=== PATIENT | male | born 1950 | race Caucasian/White ===

== ENCOUNTER 2016-08-16 10:07 | Emergency (ER) | payer BC ==
[2016-08-16] MEDS ORDERED: Ketorolac INJ* 30 MG/ML 1 ML VIAL IV ONE (11:01)
[2016-08-16] MEDS ORDERED: NS 0.9% 1000 ML* 1,000 ML IV ONE (11:01)
[2016-08-16 11:32] LABS: Hematocrit 43 % (42-52); Mean Corpuscular HGB Conc 35 g/dl (31-36); Mean Corpuscular Hemoglobin 32 pg (27-31); Mean Corpuscular Volume 91 fL (80-94); Mean Platelet Volume 9 um3 (7.4-10.4); Red Blood Count 4.72 10^6/ul (4.0-5.4); Red Cell Distribution Width 14 % (10.5-15); White Blood Count 9.2 10^3/ul (3.5-10.8)
[2016-08-16 11:34] LABS: Comments Flag Yes
[2016-08-16 11:55] LABS: ALT 21 U/L (7-52); AST 23 U/L (13-39); Alkaline Phosphatase 67 U/L (34-104); Amylase 39 U/L (29-103); Anion Gap 6 mmol/L (2-11); Blood Urea Nitrogen 16 mg/dL (6-24); C Reactive Protein < 1.00 mg/L (< 5.00); CO2 Carbon Dioxide 25 mmol/L (22-32); Calcium 9.4 mg/dL (8.6-10.3); Chloride 105 mmol/L (101-111); Creatine Kinase 70 U/L (10-223); EGFR African American 110.7 (>60); EGFR Non-African American 86.1 (>60); Globulin 2.8 g/dL (2-4); Glucose 99 mg/dL (70-100); Lipase < 10 U/L (11.0-82.0); Potassium 3.8 mmol/L (3.5-5.0); Sodium 136 mmol/L (133-145); Total Protein 6.8 g/dL (6.4-8.9)
[2016-08-16 11:57] LABS: Urine Bilirubin Negative (Negative); Urine Glucose Negative (Negative); Urine Nitrite Negative (Negative)
[2016-08-16] MEDS ORDERED: Iohexol 300* (CONTRAST) 10 ML SDV IV ONE (12:23)
--- NOTE | 2016-08-16 13:19 | RAD ---
INDICATION: Lower abdominal pain COMPARISON: CT September 28, 2010 TECHNIQUE: Axial source images were obtained from the hemidiaphragms to the symphysis pubis following administration of oral and intravenous contrast. 115 mL Omnipaque 300 was utilized. Coronal and sagittal reconstructed images were acquired. Lung bases: There is mild linear change right lung base most consistent with atelectasis. Liver: The liver is normal in size. There are no masses. There is no ductal dilatation. Gallbladder: There are no calcified gallstones. There is no evidence of wall thickening or pericholecystic fluid. Spleen: The spleen is normal in size. There are no masses. Pancreas: There is no focal pancreatic mass or ductal dilatation. Adrenal glands: There is no evidence of adrenal mass. Kidneys: The kidneys are normal in size and position. There are prompt nephrograms and there is prompt excretion bilaterally. There are no renal parenchymal masses. There is no evidence of nephrolithiasis. Adenopathy: There is no evidence of adenopathy by size criteria. Fluid collections: There are no free or localized fluid collections. Vessels:There are no significant atherosclerotic changes involving the aorta. There is no focal aneurysm. The iliac vessels are normal in caliber. The IVC appears normal. GI tract: There are no acute CT bowel findings. There is no obstruction. The stomach and small bowel appear normal. The lower GI tract is normal. The cecum, ileocecal valve, and terminal ileum appear normal. The appendix is visualized and appear normal. Pelvic organs: The prostate and seminal vesicles appear normal Bladder: There are no bladder masses. Abdominal and pelvic soft tissues: The extraperitoneal abdominal and pelvic soft tissues appear normal.. Osseous structures: There are no acute osseous findings. There is left hip pinning. There is advanced degenerative disc disease at L2-L3. Other: None IMPRESSION: NO ACUTE CT FINDINGS. NO MASS OR INFLAMMATORY CHANGE.
--- NOTE | 2016-08-16 13:42 | ED ---
Octavio Arriaga Alok, scribed for Estevan Vasquez MD on 08/16/16 at 1113 . Abdominal Pain/Male - HPI Summary HPI Summary: 66 y/o male presents to the ED for pain in his lower back, buttocks, umbilical, and near rectum. Pt states that he has been sitting at a conference for the last three days and what began as pain in only in his buttocks spread to other regions along with accompanying nausea as of last night at 1900 after a regular meal. His last BM was last night voided a small amount with no straining or blood but felt uncomfortable before. His BM previous to that was normal. Pt denies vomiting. Pt has hx of arthritis, kidney stones, and hemorrhoids. Pt takes medications for arthritis but stopped recently in preparation for dental surgery. PSHx includes a pin in his left knee and left side hip. Pt drinks EtOH occasionally but denies tobacco use. - History of Current Complaint Chief Complaint: EDAbdPain Stated Complaint: ABDOMINAL PAIN Time Seen by Provider: 08/16/16 10:39 Hx Obtained From: Patient Onset/Duration: Gradual Onset, Lasting Hours, Still Present Timing: Constant Severity Initially: Moderate Severity Currently: Moderate Pain Intensity: 3 Pain Scale Used: 0-10 Numeric Location: Umbilical, Other - Buttocks, rectum Radiates: Yes Radiates to: Back Character: Sharp Aggravating Factor(s): Nothing Alleviating Factor(s): Nothing Associated Signs And Symptoms: Positive: Back Pain, Nausea. Negative: Blood in Stool, Vomiting - Allergies/Home Medications Allergies/Adverse Reactions: Allergies Allergy/AdvReac Type Severity Reaction Status Date / Time No Known Allergies Allergy Verified 02/15/12 13:26 PMH/Surg Hx/FS Hx/Imm Hx Endocrine/Hematology History: Denies: Hx Diabetes, Hx Thyroid Disease Cardiovascular History: Denies: Hx Hypertension Respiratory History: Denies: Hx Asthma, Hx Chronic Obstructive Pulmonary Disease (COPD) GI History: Denies: Hx Ulcer - Surgical History Surgery Procedure, Year, and Place: L hip fracture; L knee x 2; Infectious Disease History: Denies: Hx Hepatitis, Hx Human Immunodeficiency Virus (HIV), Traveled Outside the [place] in Last 30 Days - Family History Known Family History: Positive: Diabetes - Mother, Other - Yes - Prostate CA ( Father) - Social History Alcohol Use: Occasionally Substance Use Type: Reports: None Smoking Status (MU): Never Smoked Tobacco Review of Systems Negative: Fever Positive: Abdominal Pain, Nausea. Negative: Vomiting Musculoskeletal: Other - Back Pain Positive: Rash All Other Systems Reviewed And Are Negative: Yes Physical Exam - Summary Physical Exam Summary: VITAL SIGNS: Reviewed. GENERAL: ~Patient is a well developed and nourished male who is lying comfortable in the stretcher. ~Patient is not in any acute respiratory distress. HEAD AND FACE: Normocephalic EYES: PERRLA, EOMI x 2. EARS: Hearing grossly intact. MOUTH: Oropharynx within normal limits. NECK: Supple, trachea is midline, no adenopathy, no JVD, no carotid bruit. CHEST: Symmetric, no tenderness at palpation LUNGS: Clear to auscultation bilaterally. No wheezing or crackles. CVS: Regular rate and rhythm, S1 and S2 present, no murmurs or gallops appreciated. ABDOMEN: Soft, non-tender. Bowel sounds are normal. No abdominal abnormal pulsations. EXTREMITIES: Full ROM in all major joints, no edema, no cyanosis or clubbing. NEURO: Alert and oriented x 3. No acute neurological deficits. Speech is normal and follows commands. SKIN: Dry and warm RECTAL: Mild gluteal tenderness and rash secondary to osteoarthritis. No ventricular lesions so no risk for shingles. Triage Information Reviewed: Yes Vital Signs On Initial Exam: Initial Vitals Temp Pulse Resp BP Pulse Ox 97.4 F 57 20 153/91 100 08/16/16 10:12 08/16/16 10:12 08/16/16 10:12 08/16/16 10:12 08/16/16 10:12 Vital Signs Reviewed: Yes - [place] Coma Scale Coma Scale Total: 15 Diagnostics - Vital Signs Vital Signs Temp Pulse Resp BP Pulse Ox 08/16/16 11:00 53 126/88 97 08/16/16 10:26 54 97 08/16/16 10:24 139/95 08/16/16 10:12 97.4 F 57 20 153/91 100 - Laboratory Lab Results: Lab Results 08/16/16 08/16/16 08/16/16 Range/Units 11:10 11:10 11:10 WBC 9.2 (3.5-10.8) 10^3/ul RBC 4.72 (4.0-5.4) 10^6/ul Hgb 15.0 (14.0-18.0) g/dl Hct 43 (42-52) % MCV 91 (80-94) fL MCH 32 H (27-31) pg MCHC 35 (31-36) g/dl RDW 14 (10.5-15) % Plt Count 164 (150-450) 10^3/ul MPV 9 (7.4-10.4) um3 Neut % (Auto) 80.2 (38-83) % Lymph % (Auto) 14.0 L (25-47) % [place] % (Auto) 5.2 (1-9) % Eos % (Auto) 0.2 (0-6) % Baso % (Auto) 0.4 (0-2) % Absolute Neuts (auto) 7.4 (1.5-7.7) 10^3/ul Absolute Lymphs (auto) 1.3 (1.0-4.8) 10^3/ul Absolute Monos (auto) 0.5 (0-0.8) 10^3/ul Absolute Eos (auto) 0 (0-0.6) 10^3/ul Absolute Basos (auto) 0 (0-0.2) 10^3/ul Absolute Nucleated RBC 0.06 10^3/ul Nucleated RBC % 0.7 Sodium 136 (133-145) mmol/L Potassium 3.8 (3.5-5.0) mmol/L Chloride 105 (101-111) mmol/L Carbon Dioxide 25 (22-32) mmol/L Anion Gap 6 (2-11) mmol/L BUN 16 (6-24) mg/dL Creatinine 0.89 (0.67-1.17) mg/dL Est GFR ( Amer) 110.7 (>60) Est GFR (Non-Af Amer) 86.1 (>60) BUN/Creatinine Ratio 18.0 (8-20) Glucose 99 (70-100) mg/dL Lactic Acid 1.1 (0.5-2.0) mmol/L Calcium 9.4 (8.6-10.3) mg/dL Total Bilirubin 0.90 (0.2-1.0) mg/dL AST 23 (13-39) U/L ALT 21 (7-52) U/L Alkaline Phosphatase 67 (34-104) U/L Total Creatine Kinase 70 (10-223) U/L C-Reactive Protein < 1.00 (< 5.00) mg/L Total Protein 6.8 (6.4-8.9) g/dL Albumin 4.0 (3.2-5.2) g/dL Globulin 2.8 (2-4) g/dL Albumin/Globulin Ratio 1.4 (1-3) Amylase 39 (29-103) U/L Lipase < 10 L (11.0-82.0) U/L Urine Color Urine Appearance Urine pH (5-9) Ur Specific [place] (1.010-1.030) Urine Protein (Negative) Urine Ketones (Negative) Urine Blood (Negative) Urine Nitrate (Negative) Urine Bilirubin (Negative) Urine Urobilinogen (Negative) Ur Leukocyte Esterase (Negative) Urine Glucose (Negative) 08/16/16 Range/Units 11:26 WBC (3.5-10.8) 10^3/ul RBC (4.0-5.4) 10^6/ul Hgb (14.0-18.0) g/dl Hct (42-52) % MCV (80-94) fL MCH (27-31) pg MCHC (31-36) g/dl RDW (10.5-15) % Plt Count (150-450) 10^3/ul MPV (7.4-10.4) um3 Neut % (Auto) (38-83) % Lymph % (Auto) (25-47) % [place] % (Auto) (1-9) % Eos % (Auto) (0-6) % Baso % (Auto) (0-2) % Absolute Neuts (auto) (1.5-7.7) 10^3/ul Absolute Lymphs (auto) (1.0-4.8) 10^3/ul Absolute Monos (auto) (0-0.8) 10^3/ul Absolute Eos (auto) (0-0.6) 10^3/ul Absolute Basos (auto) (0-0.2) 10^3/ul Absolute Nucleated RBC 10^3/ul Nucleated RBC % Sodium (133-145) mmol/L Potassium (3.5-5.0) mmol/L Chloride (101-111) mmol/L Carbon Dioxide (22-32) mmol/L Anion Gap (2-11) mmol/L BUN (6-24) mg/dL Creatinine (0.67-1.17) mg/dL Est GFR ( Amer) (>60) Est GFR (Non-Af Amer) (>60) BUN/Creatinine Ratio (8-20) Glucose (70-100) mg/dL Lactic Acid (0.5-2.0) mmol/L Calcium (8.6-10.3) mg/dL Total Bilirubin (0.2-1.0) mg/dL AST (13-39) U/L ALT (7-52) U/L Alkaline Phosphatase (34-104) U/L Total Creatine Kinase (10-223) U/L C-Reactive Protein (< 5.00) mg/L Total Protein (6.4-8.9) g/dL Albumin (3.2-5.2) g/dL Globulin (2-4) g/dL Albumin/Globulin Ratio (1-3) Amylase (29-103) U/L Lipase (11.0-82.0) U/L Urine Color Yellow Urine Appearance Clear Urine pH 7.0 (5-9) Ur Specific [place] 1.018 (1.010-1.030) Urine Protein Negative (Negative) Urine Ketones Trace H (Negative) Urine Blood Negative (Negative) Urine Nitrate Negative (Negative) Urine Bilirubin Negative (Negative) Urine Urobilinogen Negative (Negative) Ur Leukocyte Esterase Negative (Negative) Urine Glucose Negative (Negative) Result Diagrams: 08/16/16 11:10 08/16/16 11:10 Lab Statement: Any lab studies that have been ordered have been reviewed, and results considered in the medical decision making process. - CT Abd/Pel CT CT Interpretation: Positive (See Comments) - IMPRESSION: NO ACUTE CT FINDINGS. NO MASS OR INFLAMMATORY CHANGE. CT Interpretation Completed By: Radiologist - EKG 1122 Cardiac Rate: NL EKG Rhythm: Sinus Rhythm - 43 bpm EKG Interpretation: No ST elevations Re-Evaluation - Re-Evaluation First Eval Re-Evaluation Time: 13:33 Abdominal Pain Fem Course/Dx - Course Course Of Treatment: 66 y/o male presents to the ED for pain in his lower back, buttocks, umbilical, and near rectum. Pt states that he has been sitting at a conference for the last three days and what began as pain in only in his buttocks spread to other regions along with accompanying nausea as of last night at 1900 after a regular meal. His last BM was last night voided a small amount with no straining or blood but felt uncomfortable before. His BM previous to that was normal. Pt denies vomiting. Pt has hx of arthritis, kidney stones, and hemorrhoids. Pt takes medications for arthritis but stopped recently in preparation for dental surgery. PSHx includes a pin in his left knee and left side hip. Pt drinks EtOH occasionally but denies tobacco use. Assessment/Plan: Blood work found to be wnl. In physical exam he has no abnormal findings except for mild left gluteal tenderness at palpitations. Rectal exam shows no external hemorrhoids. Normal sphincter tone. Back exam shows no ecchymosis, no deformity or signs of trauma. No paraspinal muscle tenderness and no vertebral tenderness. He was given toradol in the ED and his symptoms improved. Abdominal and pelvic CT was done since patient also c / c lower abdominal pain. IMPRESSION: NO ACUTE CT FINDINGS. NO MASS OR INFLAMMATORY CHANGE. Therefore at this time patient will be given a Robaxin and Ibuprofen. I discussed all the findings and test results with the patient. Patient was instructed to return to the emergency room immediately if any of the symptoms return or worsens. Plan of care was discussed with the patient and understands and agrees. All questions were answered at patient satisfaction. There were no further complaints or concerns. Lung exam before discharge: CTA B/L. Good air exchange. No wheezing or crackles heard. CVS: S1 and S2 present. No murmurs appreciated. Patient is alert and oriented x 3. Patient is hemodynamically stable. 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 - Diagnoses Differential Diagnosis/HQI/PQRI: Bowel Obstruction, Constipation, Diverticulitis , Other - Abscess, cellulitis, back pain, Provider Diagnoses: Musculoskeletal pain Discharge - Discharge Plan Condition: Stable Disposition: HOME Prescriptions: Ibuprofen TAB* [Motrin TAB* 800 MG] 800 mg PO Q6H PRN #20 tab PRN Reason: Pain Methocarbamol TAB* [Robaxin TAB*] 750 mg PO TID PRN #12 tab PRN Reason: Pain Patient Education Materials: Musculoskeletal Pain (ED) Referrals: Carmen Estrada MD [Primary Care Provider] - The documentation as recorded by the Chriss neelye,Regino accurately reflects the service I personally performed and the decisions made by me, Estevan Vasquez MD.
[2016-08-16 13:52] VITALS: BP 128/74
== END 2016-08-16 13:51 | disposition home or self-care (01) ==
LOC: ED 10:07
DX: M79.1 Myalgia (principal); M54.5 Low back pain; R11.0 Nausea; R21 Rash and other nonspecific skin eruption
CPT/HCPCS: 36415; 74177; 80053; 81003; 82150; 82550; 83605; 83690; 85025; 86140; 93005; 96361; 96374; 99283; J1885; Q9967

== ENCOUNTER 2017-10-03 05:28 | Emergency (ER) | payer MEDICARE ==
--- OUTSIDE RECORDS SUMMARY | 2017-10-03 05:35 | XMS REPORT ---
:1950 External Reference #:[id number] Author Organization [facility] Address [address] [place] [address] Phone [phone] Care Team Providers Name Role Phone Carmen Estrada M.D. 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 Primary Care Physician Unavailable Payers Type Date Identification Numbers Payment Provider Subscriber Medicare Primary Policy Number: [id number] Medicare [place] PayID: [id number] [address] [facility] [place] [facility] Commercial Policy Number: [id number] [facility] Willis Matt Group Number: [id number] [address] PayID: [id number] [place] [address] Problems Date Description Provider Status Onset: 09/05/2015 Rheumatoid arthritis Carmen Estrada M.D. 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 available and repeat in 2-6 months Humira 00/00/ Active PSKT 20mg/0.4M 1 dose Unknown 0000 L every other week Methotrexate / Active Tablets 2.5mg 6 tab by Unknown 0000 mouth every week Multivitamin / Active Tablets 1 by mouth Unknown Adult 0000 every day Fluticasone 02/11/ Hx Suspension 50mcg/Act 48gm 2 sprays H69.93 Carmen Propionate 2017 - each [place], 08/04/ nostril M.D. 2018 twice a day Claritin 02/11/ Hx Tablets 10mg 90tab take one H69.93 Carmen 2017 - s tablet by [place], 07/07/ mouth one M.D. 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 1998 prn Immunizations CPT Code Status Date Vaccine Lot # [id number] Given 09/04/2017 Pneumococcal Immunization [id number] Given 01/02/2016 Pneumococcal Conjugate Vacc-13 [id number] Given 09/05/2015 Tdap Tetanus, W Pertussis [id number] Vital Signs Date Vital Result Comment 09/04/2017 BP Systolic 100 mmHg BP Diastolic 60 mmHg Heart Rate 68 /min Body Temperature 97.9 F Respiratory Rate 16 /min Height 73 inches 6'1" Weight 183.00 lb BMI (Body Mass Index) 24.1 kg/m2 02/11/2017 BP Systolic 110 mmHg BP Diastolic 80 mmHg Heart Rate 68 /min Body Temperature 98.1 F Respiratory Rate 18 /min Weight 181.00 lb 09/05/2015 BP Systolic 124 mmHg BP Diastolic 80 mmHg Heart Rate 64 /min Body Temperature 97.5 F Respiratory Rate 12 /min Height 73 inches 6'1" Weight 192.00 lb BMI (Body Mass Index) 25.3 kg/m2 07/26/2015 BP Systolic 110 mmHg BP Diastolic 78 mmHg Heart Rate 68 /min Body Temperature 97.7 F Respiratory Rate 16 /min Height 73 inches 6'1" Weight 192.00 lb BMI (Body Mass Index) 25.3 kg/m2 08/10/1998 BP Systolic 130 mmHg BP Diastolic 80 mmHg Body Temperature 99.0 F Weight 191.00 lb Results Test Date Test Result H/L Range Note CBC Auto Diff 08/16/2016 White Blood Count 9.2 10^3/uL 3.5-10.8 Red Blood Count 4.72 10^6/uL 4.0-5.4 Hemoglobin 15.0 g/dL 14.0-18.0 Hematocrit 43 % 42-52 Mean Corpuscular Volume 91 fL 80-94 Mean Corpuscular Hemoglobin 32 pg High 27-31 Mean Corpuscular HGB Conc 35 g/dL 31-36 Red Cell Distribution Width 14 % 10.5-15 Platelet Count 164 10^3/uL 150-450 Mean Platelet Volume 9 um3 7.4-10.4 Abs Neutrophils 7.4 10^3/uL 1.5-7.7 Abs Lymphocytes 1.3 10^3/uL 1.0-4.8 Abs Monocytes 0.5 10^3/uL 0-0.8 Abs Eosinophils 0 10^3/uL 0-0.6 Abs Basophils 0 10^3/uL 0-0.2 Abs Nucleated RBC 0.06 10^3/uL Granulocyte % 80.2 % 38-83 1 Lymphocyte % 14.0 % Low 25-47 Monocyte % 5.2 % 1-9 Eosinophil % 0.2 % 0-6 Basophil % 0.4 % 0-2 Nucleated Red Blood Cells % 0.7 Comp Metabolic Panel 08/16/2016 Sodium 136 mmol/L 133-145 Potassium 3.8 mmol/L 3.5-5.0 Chloride 105 mmol/L 101-111 Co2 Carbon Dioxide 25 mmol/L 22-32 Anion Gap 6 mmol/L 2-11 Glucose 99 mg/dL 70-100 Blood Urea Nitrogen 16 mg/dL 6-24 Creatinine 0.89 mg/dL 0.67-1.17 BUN/Creatinine Ratio 18.0 8-20 Calcium 9.4 mg/dL 8.6-10.3 Total Protein 6.8 g/dL 6.4-8.9 Albumin 4.0 g/dL 3.2-5.2 Globulin 2.8 g/dL 2-4 Albumin/Globulin Ratio 1.4 1-3 Total Bilirubin 0.90 mg/dL 0.2-1.0 Alkaline Phosphatase 67 U/L 34-104 Alt 21 U/L 7-52 Ast 23 U/L 13-39 Egfr Non- 86.1 >60 Egfr 110.7 >60 2 Laboratory test finding 08/16/2016 Amylase 39 U/L 29-103 Lipase < 10 U/L Low 11.0-82.0 Creatine Kinase(CK) 70 U/L 10-223 C Reactive Protein < 1.00 mg/L < 5.00 3 Lactic Acid 1.1 mmol/L 0.5-2.0 4 Urinalysis Profile 08/16/2016 Urine Color Yellow Urine Appearance Clear Urine Specific [place] 1.018 1.010-1.030 Urine pH 7.0 5-9 Urine Urobilinogen Negative Negative Urine Ketones Trace Negative Urine Protein Negative Negative Urine Leukocytes Negative Negative Urine Blood Negative Negative Urine Nitrite Negative Negative Urine Bilirubin Negative Negative Urine Glucose Negative Negative Comp Metabolic Panel 04/24/2016 Sodium 138 mmol/L 133-145 Potassium 4.0 mmol/L 3.5-5.0 Chloride 106 mmol/L 101-111 Co2 Carbon Dioxide 24 mmol/L 22-32 Anion Gap 8 mmol/L 2-11 Glucose 91 mg/dL 70-100 Blood Urea Nitrogen 15 mg/dL 6-24 Creatinine 0.91 mg/dL 0.67-1.17 BUN/Creatinine Ratio 16.5 8-20 Calcium 9.6 mg/dL 8.6-10.3 Total Protein 7.0 g/dL 6.4-8.9 Albumin 4.2 g/dL 3.2-5.2 Globulin 2.8 g/dL 2-4 Albumin/Globulin Ratio 1.5 1-3 Total Bilirubin 0.90 mg/dL 0.2-1.0 Alkaline Phosphatase 65 U/L 34-104 Alt 22 U/L 7-52 Ast 27 U/L 13-39 Egfr Non- 84.1 >60 Egfr 108.2 >60 5 Laboratory test finding 04/24/2016 C Reactive Protein 1.08 mg/L < 5.00 6 CBC Auto Diff 04/24/2016 White Blood Count 6.6 10^3/uL 3.5-10.8 Red Blood Count 4.66 10^6/uL 4.0-5.4 Hemoglobin 14.8 g/dL 14.0-18.0 Hematocrit 42 % 42-52 Mean Corpuscular Volume 91 fL 80-94 Mean Corpuscular Hemoglobin 32 pg High 27-31 Mean Corpuscular HGB Conc 35 g/dL 31-36 Red Cell Distribution Width 14 % 10.5-15 Platelet Count 186 10^3/uL 150-450 Mean Platelet Volume 10 um3 7.4-10.4 Abs Neutrophils 4.2 10^3/uL 1.5-7.7 Abs Lymphocytes 1.8 10^3/uL 1.0-4.8 Abs Monocytes 0.5 10^3/uL 0-0.8 Abs Eosinophils 0 10^3/uL 0-0.6 Abs Basophils 0 10^3/uL 0-0.2 Abs Nucleated RBC 0.01 10^3/uL Granulocyte % 64.4 % 38-83 Lymphocyte % 27.8 % 25-47 Monocyte % 6.8 % 1-9 Eosinophil % 0.4 % 0-6 Basophil % 0.6 % 0-2 Nucleated Red Blood Cells % 0.1 Laboratory test finding 04/24/2016 Erythrocyte Sed Rate 8 mm/Hr 0-20 7 CBC Electronic-[facility] 09/22/2015 White Blood Count 5.5 10^3/uL 3.5-10.8 [facility] Red Blood Count 4.67 10^6/uL 4.0-5.4 Hemoglobin 14.7 g/dL 14.0-18.0 Hematocrit 43 % 42-52 Mean Corpuscular Volume 92 fL 80-94 Mean Corpuscular Hemoglobin 32 pg High 27-31 Mean Corpuscular HGB Conc 34 g/dL 31-36 Red Cell Distribution Width 13 % 10.5-15 Platelet Count 176 10^3/uL 150-450 Mean Platelet Volume 9 um3 7.4-10.4 Abs Neutrophils 3.1 10^3/uL 1.5-7.7 Abs Lymphocytes 1.8 10^3/uL 1.0-4.8 Abs Monocytes 0.5 10^3/uL 0-0.8 Abs Eosinophils 0.1 10^3/uL 0-0.6 Abs Basophils 0 10^3/uL 0-0.2 Abs Nucleated RBC 0 10^3/uL Granulocyte % 56.5 % 38-83 Lymphocyte % 32.4 % 25-47 Monocyte % 8.3 % 1-9 Eosinophil % 2.1 % 0-6 Basophil % 0.7 % 0-2 Nucleated Red Blood Cells % 0 Comp Metabolic-ALL Lab [facility] 09/22/2015 Sodium 137 mmol/L 133-145 Potassium 4.3 mmol/L 3.5-5.0 Chloride 104 mmol/L 101-111 Co2 Carbon Dioxide 29 mmol/L 22-32 Anion Gap 4 mmol/L 2-11 Glucose 94 mg/dL 70-100 Blood Urea Nitrogen 15 mg/dL 6-24 Creatinine 0.91 mg/dL 0.67-1.17 BUN/Creatinine Ratio 16.5 8-20 Calcium 9.2 mg/dL 8.6-10.3 Total Protein 6.7 g/dL 6.4-8.9 Albumin 4.2 g/dL 3.2-5.2 Globulin 2.5 g/dL 2-4 Albumin/Globulin Ratio 1.7 1-3 Total Bilirubin 0.90 mg/dL 0.2-1.0 Alkaline Phosphatase 76 U/L 34-104 Alt 24 U/L 7-52 Ast 28 U/L 13-39 Egfr Non- 84.1 >60 Egfr 108.2 >60 8 Lipid Panel-[facility] 09/22/2015 Triglycerides 74 mg/dL 9 Cholesterol 179 mg/dL 10 HDL Cholesterol 42.2 mg/dL 11 LDL Cholesterol 122 mg/dL 12 Urinalysis Profile 09/22/2015 Urine Color Yellow Urine Appearance Clear Urine Specific [place] 1.017 1.010-1.030 Urine pH 5.0 5-9 Urine Urobilinogen Negative Negative Urine Ketones Negative Negative Urine Protein Negative Negative Urine Leukocytes Negative Negative Urine Blood Negative Negative Urine Nitrite Negative Negative Urine Bilirubin Negative Negative Urine Glucose Negative Negative 1 Consistent with previous results on 07/31/16. 2 Because ethnic data is not always readily available, this report includes an eGFR for both -Americans and non- Americans. The National Kidney Disease Education Program (NKDEP) does not endorse the use of the MDRD equation for patients that are not between the ages of 18 and 70, are , have extremes of body size, muscle mass, or nutritional status, or are non- or non-. According to the National Kidney Foundation, irrespective of diagnosis, the stage of the disease is based on the level of kidney function: Stage Description GFR(mL/min/1.73 m(2)) 1 Kidney damage with normal or decreased GFR 90 2 Kidney damage with mild decrease in GFR 60-89 3 Moderate decrease in GFR 30-59 4 Severe decrease in GFR 15-29 5 Kidney failure <15 (or dialysis) 3 Acute inflammation: >10.[address] [facility] Severe Sepsis and Septic Shock Management Bundle Measure requires all lactic acids initially measuring >2.0 mmol/L be repeated. 5 Because ethnic data is not always readily available, this report includes an eGFR for both -Americans and non- Americans. The National Kidney Disease Education Program (NKDEP) does not endorse the use of the MDRD equation for patients that are not between the ages of 18 and 70, are , have extremes of body size, muscle mass, or nutritional status, or are non- or non-. According to the National Kidney Foundation, irrespective of diagnosis, the stage of the disease is based on the level of kidney function: Stage Description GFR(mL/min/1.73 m(2)) 1 Kidney damage with normal or decreased GFR 90 2 Kidney damage with mild decrease in GFR 60-89 3 Moderate decrease in GFR 30-59 4 Severe decrease in GFR 15-29 5 Kidney failure <15 (or dialysis) 6 Acute inflammation: >10.00 7 STANDING ORDER VALID 02/20/16-08/20/16 DIRECTED 8 Because ethnic data is not always readily available, this report includes an eGFR for both -Americans and non- Americans. The National Kidney Disease Education Program (NKDEP) does not endorse the use of the MDRD equation for patients that are not between the ages of 18 and 70, are , have extremes of body size, muscle mass, or nutritional status, or are non- or non-. According to the National Kidney Foundation, irrespective of diagnosis, the stage of the disease is based on the level of kidney function: Stage Description GFR(mL/min/1.73 m(2)) 1 Kidney damage with normal or decreased GFR 90 2 Kidney damage with mild decrease in GFR 60-89 3 Moderate decrease in GFR 30-59 4 Severe decrease in GFR 15-29 5 Kidney failure <15 (or dialysis) 9 Desirable <150 Borderline high 150-199 High 200-499 Very High >500 10 Desirable <200 Borderline high 200-239 High >239 11 Low <40 Desirable: 40-60 High: >60 12 Desirable: <100 mg/dL Near Optimal: 100-129 mg/dL Borderline High: 130-159 mg/dL High: 160-189 mg/dL Very High: >189 mg/dL Procedures Date CPT Code Description Status 04/22/2016 Colonoscopy Completed Encounters Type Date Location Provider CPT E/M Dx Office Visit 02/11/2017 9:00a [facility] Carmen Estrada M.D. 77580 H69.93 Office Visit 09/05/2015 9:00a Main Office Carmen Estrada M.D. 37910 Z00.00 M05.79 Z12.11 Z23 Office Visit 07/26/2015 2:00p Main Office Nataly DIRK [place] 98274 J01.90 M25.562 Plan of Care 09/04/2017 - Carmen Estrada M.D.Z00.00 Encntr for general adult medical exam w/o abnormal findingsComments:Encourage an active and healthy lifestyle with proper eating habits including fruits, vegetables, 6-8 glasses of water a day and monitoring portion size. Recommend 30 minutes of daily physical activityincluding walking, aerobic exercise, sports, yoga or dance. Any activity is better than no activity.Recommend routine eye and dental exams. Next physical is due in 1-2 years. Recommend annual influenza [id number] Rheu arthritis w rheu factor mult site w/o org/sys involvNew Labs:CBC Electronic (Fma)CCS-Comp And Lipid (Fma)Comments:follows Dr Reyes/ [place], fasting labs with next blood drawN40.0 Benign prostatic hyperplasia without lower urinry tract sympNew Labs:PSA (ALL Lab Comp)Ua - Non Micro (Fma) Comments:call if symptoms worsen for medical [id number] Encounter for immunizationAllNew Medication:Shingrix 50 mcgComments:~B_~U_Medication Management~b_~u_ Patient Understands medications he's taking? Yes No Are there Barriers to Adherence? Yes No Has the patient been asked about herbal supplements and therapies, and OTC meds? Yes No
[2017-10-03] MEDS ORDERED: Methocarbamol* 100 MG/ML 10 ML VIAL IV ONE ×2 (05:45→05:56)
[2017-10-03] MEDS ORDERED: methylPREDNISolone SOD 40 MG* 1 ML VIAL IV ONE (05:55)
[2017-10-03] MEDS ORDERED: Ketorolac INJ* 30 MG/ML 1 ML VIAL IV PUSH ONE (05:55)
[2017-10-03] MEDS ORDERED: Ondansetron ODT TAB* 4 MG PO ONE (06:00)
--- NOTE | 2017-10-03 06:00 | ED ---
Back Pain - HPI Summary HPI Summary: 67M presents with lower back pain since yesterday. He denies any injury. He has a history of sciatica and states these feels the same the pain is just more intense. He state pain radiates into left buttock and down left leg occasionally to the knee. He denies any saddle anasethesia or loss of bowel or bladder. He denies any fever. He admits to nausea but denies any vomiting. He took tyenlol and advil last night without relief. He denies any dysuria or hematuria. He has PMH of kidney stones. He states pain wraps around to lower abdomen. He admits to constipation. He had normal BM yesterday. no blood in stool. no previous belly surgeries. is able to ambulate. no weakness. no chest pain or SOB. PMH of arthritis. - History of Current Complaint Chief Complaint: EDGeneral Stated Complaint: BACK, PENIS/RECTAL PAIN Time Seen by Provider: 10/03/17 05:43 Pain Intensity: 8 - Allergies/Home Medications Allergies/Adverse Reactions: Allergies Allergy/AdvReac Type Severity Reaction Status Date / Time No Known Allergies Allergy Verified 10/03/17 06:05 PMH/Surg Hx/FS Hx/Imm Hx Endocrine/Hematology History: Denies: Hx Diabetes, Hx Thyroid Disease Cardiovascular History: Denies: Hx Hypertension Respiratory History: Denies: Hx Asthma, Hx Chronic Obstructive Pulmonary Disease (COPD) GI History: Denies: Hx Ulcer - Surgical History Surgery Procedure, Year, and Place: L hip fracture; L knee x 2; Infectious Disease History: No Infectious Disease History: Denies: Hx Hepatitis, Hx Human Immunodeficiency Virus (HIV), Traveled Outside the [place] in Last 30 Days - Family History Known Family History: Positive: Diabetes - Mother, Other - Yes - Prostate CA ( Father) - Social History Alcohol Use: Occasionally Substance Use Type: Reports: None Smoking Status (MU): Never Smoked Tobacco Review of Systems Negative: Fever Negative: Chest Pain Negative: Shortness Of Breath Positive: Abdominal Pain, Nausea Positive: Myalgia - back All Other Systems Reviewed And Are Negative: Yes Physical Exam Triage Information Reviewed: Yes Vital Signs On Initial Exam: Initial Vitals Temp Pulse Resp BP Pulse Ox 98.3 F 51 18 138/82 100 10/03/17 05:34 10/03/17 05:34 10/03/17 05:34 10/03/17 05:34 10/03/17 05:34 Vital Signs Reviewed: Yes Appearance: Positive: Well-Appearing Skin: Positive: Warm, Dry Head/Face: Positive: Normal Head/Face Inspection Eyes: Positive: Normal, Conjunctiva Clear ENT: Positive: Pharynx normal Respiratory/Lung Sounds: Positive: Clear to Auscultation, Breath Sounds Present Cardiovascular: Positive: Normal, RRR Abdomen Description: Positive: Nontender, Soft, Other: - normal rectal tone. Negative: CVA Tenderness (R), CVA Tenderness (L) Bowel Sounds: Positive: Present Musculoskeletal: Positive: Strength/ROM Intact - back, Other - tenderness lower back, neg SLR Neurological: Positive: Sensory/Motor Intact - legs. Negative: Babinski Bilateral - neg Psychiatric: Positive: Normal Diagnostics - Vital Signs Vital Signs Temp Pulse Resp BP Pulse Ox 10/03/17 05:34 98.3 F 51 18 138/82 100 - Laboratory Result Diagrams: 10/03/17 06:00 10/03/17 06:00 Lab Statement: Any lab studies that have been ordered have been reviewed, and results considered in the medical decision making process. - CT abd CT Interpretation: Positive (See Comments) - Multiple nodules in the lung base, largest 1.. Tenderness in right middle lordosis is for metastasis. No nephrolithiasis. CT Interpretation Completed By: Radiologist back CT Interpretation: Positive (See Comments) - No fracture or malalignment. marked degenerative disc disease L2-L3. Posterior disc bulge at L2 through L3. L5-S1 contributing moderately canal stenosis. CT Interpretation Completed By: Radiologist Re-Evaluation - Re-Evaluation First Eval Re-Evaluation Time: 08:11 Change: Improved Comment: pain has decreased and is ready to go home Back Pain Course/Dx - Course Course Of Treatment: 67M presents with lower back pain since yesterday. He denies any injury. He has a history of sciatica and states these feels the same the pain is just more intense. He state pain radiates into left buttock and down left leg occasionally to the knee. He denies any saddle anasethesia or loss of bowel or bladder. He denies any fever. He admits to nausea but denies any vomiting. He took tyenlol and advil last night without relief. He denies any dysuria or hematuria. He has PMH of kidney stones. He states pain wraps around to lower abdomen. He admits to constipation. He had normal BM yesterday. no blood in stool. no previous belly surgeries. is able to ambulate. no weakness. No chest pain or SOB. PMH of arthritis. on exam abd soft nontender. tenderness lower back, neg CVA tenderness. normal rectal tone. neurovascular intact. wbc normal. CT abdomen normal. multiple nodles in lung base suspicious for metastasis. back CT shows degenerative changes. urine neg. patient pain improved. will treat with steriod and muscle relaxer. patient will follow up with primary about pulmonary nodules for further work. patient understand and agrees with plan. - Diagnoses Differential Diagnosis/HQI/PQRI: Positive: Herniated Disc, Sprain, Other - pyelo , sciatica Provider Diagnoses: Back pain Discharge - Sign-Out/Discharge Documenting (check all that apply): Discharge/Admit/Transfer - Discharge Plan Condition: Good Disposition: HOME Prescriptions: Cyclobenzaprine TAB* [Flexeril 10 MG TAB*] 10 mg PO TID PRN #15 tab PRN Reason: Pain HYDROcodone/ACETAMIN 5-325 MG* [[place] 5-325 TAB*] 1 tab PO Q8H PRN #6 tab MDD 3 PRN Reason: Pain methylPREDNISolone [Medrol Dosepak 4 MG*] 4 mg PO .SEE HAI INSTRUCTION #1 packet Patient Education Materials: Back Pain (ED) Referrals: Carmen Estrada MD [Primary Care Provider] - Additional Instructions: Follow up with primary about pulmonary nodules and back pain Follow directions on package for Medrol pack Take muscle relaxers up to three times a day Use ibuprofen or Tylenol for pain every 6 hours, can take narcotic every 8 hours as needed for extreme pain ice/heat area, move as much as possible Return to ED if develop any new or worsening symptoms - Billing Disposition and Condition Condition: GOOD Disposition: HOME
[2017-10-03 06:08] LABS: ABS Basophils 0.1 10^3/ul (0-0.2); ABS Eosinophils 0 10^3/ul (0-0.6); ABS Monocytes 0.3 10^3/ul (0-0.8); ABS Neutrophils 6.9 10^3/ul (1.5-7.7); ABS Nucleated RBC 0 10^3/ul; Eosinophil % 0 % (0-6); Hematocrit 41 % (42-52); Hemoglobin 14.6 g/dl (14.0-18.0); Lymphocyte % 11.9 % (25-47); Mean Corpuscular HGB Conc 35 g/dl (31-36); Mean Corpuscular Hemoglobin 33 pg (27-31); Mean Corpuscular Volume 92 fL (80-94); Mean Platelet Volume 8.7 um3 (7.4-10.4); Nucleated Red Blood Cells % 0; Platelet Count 181 10^3/ul (150-450); Red Blood Count 4.48 10^6/ul (4.0-5.4); Red Cell Distribution Width 13 % (10.5-15); White Blood Count 8.1 10^3/ul (3.5-10.8)
[2017-10-03 06:31] LABS: EGFR Non-African American 89.2 (>60)
[2017-10-03 07:40] LABS: Urine Appearance Clear; Urine Blood Negative (Negative); Urine Color Yellow; Urine Ketones 1+ (Negative); Urine Protein Negative (Negative); Urine Specific Gravity 1.031 (1.010-1.030); Urine Urobilinogen Negative (Negative)
--- NOTE | 2017-10-03 08:16 | RAD ---
HISTORY: Back pain, lower abdominal pain COMPARISONS: CT dated October 03, 2017 TECHNIQUE: Multiple contiguous axial CT scans were obtained of the lumbar spine without intravenous contrast, with coronal and sagittal multiplanar reformations. FINDINGS: SPINAL CANAL: Evaluation of the central canal is limited on CT technique; however, there is no obvious canalicular mass or epidural hemorrhage. ALIGNMENT: There is trace retrolisthesis of L2 on L3. There is a mild scoliotic curvature of the spine. VERTEBRAL BODIES: There is diffuse osteopenia. Is multilevel anterolateral marginal osteophyte formation. There are sclerotic endplate changes at L2-L3. Vertebral bodies are preserved in height. JOINTS: There is no subluxation or dislocation. MUSCULATURE: Unremarkable INTERVERTEBRAL DISCS: There is diffuse loss of intervertebral disc height throughout the spine. AXIAL IMAGES: T11-T12: There is no osseous neural foramen narrowing of central canal stenosis. T12-L1: There is no osseous neural foraminal narrowing or central canal stenosis. L1-L2: There is no osseous neural foraminal narrowing or central canal stenosis. L2-L3: There is mild disc bulge. There is moderate left and mild right neural foraminal narrowing. There is mild narrowing of the central canal. L3-L4: There is mild bilateral neural foraminal narrowing. There is no significant osseous central canal stenosis. L4-L5: There is a mild disc bulge. There is mild bilateral neural foraminal narrowing. There is no osseous central canal stenosis. L5-S1: There is a broad-based disc bulge with a left lateral recess disc protrusion measuring 0.5 cm in depth. There is mild bilateral neural foraminal narrowing. There is no osseous central canal stenosis. SOFT TISSUES: The visualized soft tissues of the abdomen are unremarkable. OTHER: None IMPRESSION: 1. DEGENERATIVE DISC DISEASE AND OSTEOARTHRITIS. 2. THERE IS MILD NARROWING OF THE CENTRAL CANAL AT L2-L3. 3. THERE IS LEFT-SIDED DISC PROTRUSION AT L5-S1. 4. THERE IS MULTILEVEL NEURAL FORAMINAL NARROWING DESCRIBED ABOVE.
--- NOTE | 2017-10-03 08:19 | RAD ---
Indication: Left-sided back pain, lower abdominal pain. CT of the abdomen and pelvis was performed without oral or IV contrast administration. Coronal and sagittal reconstructed images were obtained. Comparison is made with previous exam dated August 16, 2016. The lung bases demonstrate well-defined nodule in the right lower lobe measuring 6 mm. Nodule in the left lower lobe measures 9 mm and 6 mm as well as 5 mm. Other nodule measuring 4 mm are noted. Nodule in the right hemidiaphragm measures 8 mm. Metastatic disease should BE considered. The heart demonstrates no pericardial effusion. The liver is normal in size. No focal lesions or intrahepatic ductal dilatation is noted. The spleen is normal in size. No adrenal lesions are noted. The kidneys demonstrates no hydronephrosis. The gallbladder demonstrates no calcified gallstones. No pericholecystic fluid or wall thickening is noted. The pancreas demonstrates no mass or pancreatic duct dilatation. No adrenal lesions are noted. No retroperitoneal adenopathy is noted. No dilated loops of bowel are noted. CT of the pelvis demonstrates no retroperitoneal or pelvic lymphadenopathy. The urinary bladder is otherwise unremarkable. Prostate is mildly enlarged. IMPRESSION: Multiple noncalcified pulmonary nodules are noted in the lung bases. The possibility of metastatic disease should BE considered. No other abnormal masses or fluid collections are noted. No evidence of obstructive uropathy is noted. Further evaluation with CT of the chest, abdomen and pelvis could BE performed with IV contrast.
[2017-10-03 08:24] VITALS: BP 128/77
== END 2017-10-03 08:26 | disposition home or self-care (01) ==
LOC: ED 05:28
DX: M54.5 Low back pain (principal); Z87.442 Personal history of urinary calculi; R91.8 Other nonspecific abnormal finding of lung field; M51.36 Other intervertebral disc degeneration, lumbar region
CPT/HCPCS: 36415; 72131; 74176; 80053; 81003; 83605; 83690; 85025; 86141; 96374; 96375; 96376; 99282; A9270-GY; J1885; J2800; J2920

== ENCOUNTER 2019-04-26 05:30 | Observation (INO) | payer MEDICARE, OTHER ==
--- NOTE | 2019-04-20 09:13 | HP ---
HISTORY AND PHYSICAL: DATE OF ADMISSION/SURGERY: 04/26/19 DATE OF OFFICE VISIT: 04/19/19 SURGEON: Leilani Mena MD * (DICTATED BY BRANDYN COX) PROCEDURE: Left total knee arthroplasty with possible hardware removal. CHIEF COMPLAINT: Left knee pain. HISTORY OF PRESENT ILLNESS: Mr. Matt is a 68-year-old gentleman with continued complaints of left knee pain. He has failed conservative treatment and elects to proceed with a left total knee arthroplasty. PAST MEDICAL HISTORY: 1. Prostate cancer. 2. Sleep apnea. PAST SURGICAL HISTORY: 1. Left knee arthroscopy. 2. Left knee ACL reconstruction. 3. Left hip percutaneous pinning. 4. Right wrist surgery. CURRENT MEDIATIONS: 1. Folic acid 1 mg daily. 2. Multivitamin. 3. Pomegranate. 4. Vitamin C. 5. Vitamin D. 6. Lupron injections. ALLERGIES: No known drug allergies. FAMILY HISTORY: Diabetes and cancer. SOCIAL HISTORY: He is a 68-year-old gentleman, lives with his . He does not smoke or use drugs. He uses occasional alcohol. REVIEW OF SYSTEMS: A complete 14-point review of systems was reviewed with the patient and is all negative and noncontributory. He denies a history of DVT, PE , hepatitis, HIV, or anesthesia problems. PHYSICAL EXAMINATION GENERAL: He is well developed, well nourished, in no acute distress. VITAL SIGNS: He stands 71 inches tall, weighs 180 pounds. Blood pressure is 138/88, heart rate is 59. HEENT: Normocephalic, atraumatic. NECK: Supple. No palpable lymph nodes. PULMONARY: The lungs are clear to auscultation bilaterally. CARDIO: Regular rate and rhythm. ABDOMEN: Soft, nontender, nondistended. MUSCULOSKELETAL: Left lower extremity: Skin is intact. There are no open wounds or abrasions. There is some moderate effusion. He has some tenderness along the medial and lateral joint line. Range of motion is 10 to 120 degrees of flexion. He is able to dorsiflex and plantar flex. He has a 2+ dorsalis pedis pulse and intact sensation. ASSESSMENT AND PLAN: Ms. Matt is a 68-year-old gentleman with end-stage osteoarthritis of the left knee. He has failed conservative treatment and elected to proceed with a left total knee arthroplasty with possible hardware removal. The surgery is scheduled for 04/26/[address] Mena discussed the risks and benefits of the surgery at today's visit and all of his questions were answered. He will follow up with Dr. Mena 2 weeks after the surgery. Due to his history of prostate cancer, we are going to use a Coude catheter for him to be placed prior to the surgery. BRANDYN COX [id number]/[facility] #: [id number] MTDWilliam
[~2019-04-26 05:30] MED LIST: Buffered Lidocaine 1% SYRIN* 1 ML/SYRINGE INTRADERM ONE; Tranexamic Acid 1,000 MG in NS 0.9% 50 ML* (outpatient use) IV SCH
--- OUTSIDE RECORDS SUMMARY | 2019-04-26 05:35 | XMS REPORT | Continuity of Care Document ---
:1950 External Reference #:[id number] Author Name Leilani Mena M.D. (transmitted by agent of provider Sarah Fischer) Address [address] [facility] [place] [address] Care Team Providers Name Role Phone Ellie Red MD - Dermatology Care Team Information Dean Of Women Carmen Estrada MD - Family Care Team Information Dean Of Women [phone] Medicine Wan Burgos MD - Urology Care Team Information Dean Of Women [phone] Problems Active Problems Provider Date Psoriasis with arthropathy Franc Morris M.D.,FACP Onset: 2010 Note: lpe: note rheum factor positive > 100 and ccp > 250 so may be overlap.. Medications Intermediate (Current) Use Encounter Adalid Diaz M.D. Onset: 02/2012 Rheumatoid arthritis Adalid Diaz M.D. Onset: 01/20/2012 Psoriasis Adalid Diaz M.D. Onset: 04/20/2013 Taking medication DIRK Callahan Onset: 06/03/2014 Localized, secondary osteoarthritis Chele Tuttle M.D. Onset: 08/23/2015 Extra-articular rheumatoid process Leilani Mena M.D. Onset: 03/09/2018 Social History Type Date Description Comments Sex Unknown Tobacco Use Start: Unknown Never Smoked Cigarettes ETOH Use Denies alcohol use ETOH Use Occasionally consumed alcohol in the past Recreational Drug Use Denies Drug Use Tobacco Use Start: Unknown Patient has never smoked Smoking Status Reviewed: 03/10/19 Patient has never smoked Exercise Type/Frequency Exercises regularly Allergies, Adverse Reactions, Alerts Description No Known Drug Allergies Medications Active Medications SIG Qnty Indications Ordering Provider Date Shingrix 2 doses 6 month 2units Z23 Shaina LesterDIRK 08/28/2017 50mcg apart Suspension Rec Folic Acid Take 1 Tablet By 90tabs Z79.899 Shaina Lester, HOUSEHOLD PERSONAL ASSISTANT 07/10/2010 1mg Tablets Mouth Every Day Multi Complete daily Unknown Capsules Pomegranate Unknown Vitamin C Unknown Vitamin D Unknown Medications Administered in Office Medication SIG Qnty Indications Ordering Provider Date [facility] Nurse Visit 11/19/2010 Injection Celestone 3 mg and 3mg Elliejacoby BraggInes, 04/27/2010 Injection M.D. Immunizations CPT Code Status Date Vaccine Reaction Lot # [id number] Given 03/02/2018 Pneumonia Vaccine [id number] well. [id number] Given 02/24/2017 Influenza Virus Vaccine, Pt. tolerated well. No [id number] Quadrivalent, Split, reaction noted. Preservative Free 79266 Given 01/02/2016 Pneumococcal Conjugate [id number] Vaccine 13 Valent For Intramuscular Use 39120 Given 03/15/2015 Influenza Virus Vaccine, [id number] Quadrivalent, Split, Preservative Free 70031 Given 03/03/2014 Flu Vaccine Split Virus [id number] Preservative Free For Indiv 3Yr Older 50959 Given 03/03/2014 Flu Vaccine Split Virus Preservative Free For Indiv 3Yr Older Vital Signs Date Vital Result Comment 03/10/2019 11:48am Height 71.75 inches 5'11.75" Weight 177.00 lb Heart Rate 50 /min BP Systolic 104 mmHg BP Diastolic 74 mmHg Respiratory Rate 18 /min Body Temperature 97.7 F Pain Level 4 BMI (Body Mass Index) 24.2 kg/m2 04/09/2018 11:36am Height 71.75 inches 5'11.75" Weight 178.00 lb Heart Rate 52 /min BP Systolic 106 mmHg BP Diastolic 72 mmHg Pain Level 1 O2 % BldC Oximetry 97 % BMI (Body Mass Index) 24.3 kg/m2 Results Test Acquired Date Facility Test Result H/L Range Note CBC Auto 02/22/2019 [facility] White Blood 6.2 10^3/uL Normal 3.5-10.[address] [place] [address] [phone] Red Blood Count 4.33 10^6/uL Normal 4.18-5.48 Hemoglobin 13.1 g/dL Low 14.0-18.0 Hematocrit 37 % Low 42-52 Mean Corpuscular Volume 86 fL Normal 80-94 Mean Corpuscular Hemoglobin 30 pg Normal 27-31 Mean Corpuscular HGB Conc 35 g/dL Normal 31-36 Red Cell Distribution Width 14 % Normal 10-15 Platelet Count 158 10^3/uL Normal 150-450 Mean Platelet Volume 8.7 fL Normal 7.4-10.4 Abs Neutrophils 3.2 10^3/uL Normal 1.5-7.7 Abs Lymphocytes 2.1 10^3/uL Normal 1.0-4.8 Abs Monocytes 0.6 10^3/uL Normal 0-0.8 Abs Eosinophils 0.2 10^3/uL Normal 0-0.6 Abs Basophils 0.0 10^3/uL Normal 0-0.2 Abs Nucleated RBC 0.0 10^3/uL Granulocyte % 52.2 % Lymphocyte % 34.9 % Monocyte % 9.7 % Eosinophil % 2.7 % Basophil % 0.5 % Nucleated Red Blood Cells % 0.1 Comp Metabolic 02/22/2019 [facility] Sodium 139 mmol/L Normal 135-[address] [place] [address] [phone] Potassium 4.1 mmol/L Normal 3.5-5.0 Chloride 108 mmol/L Normal 101-111 Co2 Carbon Dioxide 26 mmol/L Normal 22-32 Anion Gap 5 mmol/L Normal 2-11 Glucose 97 mg/dL Normal 70-100 Blood Urea Nitrogen 31 mg/dL High 6-24 Creatinine 0.81 mg/dL Normal 0.67-1.17 BUN/Creatinine Ratio 38.3 High 8-20 Calcium 9.3 mg/dL Normal 8.6-10.3 Total Protein 6.3 g/dL Low 6.4-8.9 Albumin 3.9 g/dL Normal 3.2-5.2 Globulin 2.4 g/dL Normal 2-4 Albumin/Globulin Ratio 1.6 Normal 1-3 Total Bilirubin 0.60 mg/dL Normal 0.2-1.0 Alkaline Phosphatase 86 U/L Normal 34-104 Alt 16 U/L Normal 7-52 Ast 23 U/L Normal 13-39 Egfr Non- 95.3 >60 Egfr 115.4 >60 1 Laboratory test 02/22/2019 [facility] PSA Screening 0.212 Normal 0-4.000 [address] ng/[place] [address] [phone] CBC Auto Diff 12/24/2018 [facility] White Blood 7.1 Normal 3.5 -10.[address] Count 10^3/[place] [address] [phone] Red Blood Count 4.48 10^6/uL Normal 4.18-5.48 Hemoglobin 13.3 g/dL Low 14.0-18.0 Hematocrit 39 % Low 42-52 Mean Corpuscular Volume 86 fL Normal 80-94 Mean Corpuscular Hemoglobin 30 pg Normal 27-31 Mean Corpuscular HGB Conc 35 g/dL Normal 31-36 Red Cell Distribution Width 14 % Normal 10-15 Platelet Count 183 10^3/uL Normal 150-450 Mean Platelet Volume 9.0 fL Normal 7.4-10.4 Abs Neutrophils 4.7 10^3/uL Normal 1.5-7.7 Abs Lymphocytes 1.6 10^3/uL Normal 1.0-4.8 Abs Monocytes 0.5 10^3/uL Normal 0-0.8 Abs Eosinophils 0.2 10^3/uL Normal 0-0.6 Abs Basophils 0.1 10^3/uL Normal 0-0.2 Abs Nucleated RBC 0.0 10^3/uL Granulocyte % 66.3 % Lymphocyte % 23.1 % Monocyte % 7.4 % Eosinophil % 2.4 % Basophil % 0.8 % Nucleated Red Blood Cells % 0.0 Comp Metabolic 12/24/2018 [facility] Sodium 140 mmol/L Normal 135-[address] [place] [address] [phone] Potassium 4.2 mmol/L Normal 3.5-5.0 Chloride 109 mmol/L Normal 101-111 Co2 Carbon Dioxide 25 mmol/L Normal 22-32 Anion Gap 6 mmol/L Normal 2-11 Glucose 103 mg/dL High 70-100 Blood Urea Nitrogen 22 mg/dL Normal 6-24 Creatinine 0.80 mg/dL Normal 0.67-1.17 BUN/Creatinine Ratio 27.5 High 8-20 Calcium 9.2 mg/dL Normal 8.6-10.3 Total Protein 6.6 g/dL Normal 6.4-8.9 Albumin 4.0 g/dL Normal 3.2-5.2 Globulin 2.6 g/dL Normal 2-4 Albumin/Globulin Ratio 1.5 Normal 1-3 Total Bilirubin 0.40 mg/dL Normal 0.2-1.0 Alkaline Phosphatase 84 U/L Normal 34-104 Alt 15 U/L Normal 7-52 Ast 22 U/L Normal 13-39 Egfr Non- 96.7 >60 Egfr 117.0 >60 3 Laboratory test 12/24/2018 [facility] PSA Diagnostic 0.281 Normal 0-4.000 [address] ng/[place] [address] [phone] CBC Auto Diff 09/21/2018 [facility] White Blood 19.4 High 3.5- 10.[address] Count 10^3/[place] [address] [phone] Red Blood Count 4.25 10^6/uL Normal 4.18-5.48 Hemoglobin 13.0 g/dL Low 14.0-18.0 Hematocrit 39 % Low 42-52 Mean Corpuscular Volume 91 fL Normal 80-94 Mean Corpuscular Hemoglobin 31 pg Normal 27-31 Mean Corpuscular HGB Conc 34 g/dL Normal 31-36 Red Cell Distribution Width 15 % Normal 10.5-15 Platelet Count 217 10^3/uL Normal 150-450 Mean Platelet Volume 8.2 fL Normal 7.4-10.4 Abs Neutrophils 18.0 10^3/uL High 1.5-7.7 Abs Lymphocytes 1.0 10^3/uL Normal 1.0-4.8 Abs Monocytes 0.3 10^3/uL Normal 0-0.8 Abs Eosinophils 0.0 10^3/uL Normal 0-0.6 Abs Basophils 0.1 10^3/uL Normal 0-0.2 Abs Nucleated RBC 0.0 10^3/uL Granulocyte % 92.5 % Lymphocyte % 5.2 % Monocyte % 1.8 % Eosinophil % 0.0 % Basophil % 0.5 % Nucleated Red Blood Cells % 0.0 Comp Metabolic 09/21/2018 [facility] Sodium 137 mmol/L Normal 135-[address] [place] [address] [phone] Potassium 4.0 mmol/L Normal 3.5-5.0 Chloride 106 mmol/L Normal 101-111 Co2 Carbon Dioxide 21 mmol/L Low 22-32 Anion Gap 10 mmol/L Normal 2-11 Glucose 199 mg/dL High 70-100 Blood Urea Nitrogen 22 mg/dL Normal 6-24 Creatinine 0.76 mg/dL Normal 0.67-1.17 BUN/Creatinine Ratio 28.9 High 8-20 Calcium 9.3 mg/dL Normal 8.6-10.3 Total Protein 6.7 g/dL Normal 6.4-8.9 Albumin 4.1 g/dL Normal 3.2-5.2 Globulin 2.6 g/dL Normal 2-4 Albumin/Globulin Ratio 1.6 Normal 1-3 Total Bilirubin 0.50 mg/dL Normal 0.2-1.0 Alkaline Phosphatase 79 U/L Normal 34-104 Alt 24 U/L Normal 7-52 Ast 24 U/L Normal 13-39 Egfr Non- 102.6 >60 Egfr 124.2 >60 5 Laboratory test 09/21/2018 [facility] PSA Diagnostic 0.417 Normal 0-4.000 [address] ng/mL [place], [place] [phone] 1 Because ethnic data is not always readily [...] 15-29 5 Kidney failure <15 (or dialysis) 2 Serum levels of PSA measured using the [employer] DXI Hybritech immunoassay should not be interpreted as absolute evidence of the presence or absence of disease. The PSA value should be used in conjunction with other pertinent clinical diagnostic procedures. A PSA value in the range of 0.1 to 0.6 ng/ml is indeterminate if being used as an indicator of recurrent or residual disease. The values obtained with different assay methods or kits cannot be used interchangeably. 3 Because ethnic data is not always readily [...] 15-29 5 Kidney failure <15 (or dialysis) 4 Serum levels of PSA measured using the [employer] DXI Hybritech immunoassay should not be interpreted as absolute evidence of the presence or absence of disease. The PSA value should be used in conjunction with other pertinent clinical diagnostic procedures. A PSA value in the range of 0.1 to 0.6 ng/ml is indeterminate if being used as an indicator of recurrent or residual disease. The values obtained with different assay methods or kits cannot be used interchangeably. 5 Because ethnic data is not always [...] 5 Kidney failure <15 (or dialysis) 6 Serum levels of PSA measured using the [employer] DXI Hybritech immunoassay should not be interpreted as absolute evidence of the presence or absence of disease. The PSA value should be used in conjunction with other pertinent clinical diagnostic procedures. A PSA value in the range of 0.1 to 0.6 ng/ml is indeterminate if being used as an indicator of recurrent or residual disease. The values obtained with different assay methods or kits cannot be used interchangeably. Procedures Date Code Description Status 07/18/2011 100952722 Bone Mineral Density Test Completed 05/12/2002 [id number] Colonoscopy Completed Medical Devices Description No Information Available Encounters Description No Information Available Assessments Date Code Description Provider 03/10/2019 M05.69 Rheumatoid arthritis of multiple sites with Leilani Mena M.D. involvement of o 03/10/2019 M25.562 Pain in left knee Leilani Mena M.D. 03/10/2019 M25.462 Effusion, left knee Leilani Mena M.D. 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 knee Plan of Treatment 03/10/2019 - Leliani Mena M.D.M05.69 Rheumatoid arthritis of multiple sites with involvement of oFollow up:Follow up: 7-10 days before kqoifkpV97.562 Pain in left kneeM25.462 Effusion, left kneeM17.32 Unilateral post-traumatic osteoarthritis, left knee Functional Status Description No Information Available Mental Status Description No Information Available Referrals Description No Information Available
--- OUTSIDE RECORDS SUMMARY | 2019-04-26 05:35 | XMS REPORT | Continuity of Care Document ---
:1950 External Reference #:[id number] Author Name Leilani Mena M.D. (transmitted by agent of provider Angelita Brown) Address [address] [facility] [place] [address] Care Team Providers Name Role Phone Ellie Red MD - Dermatology Care Team Information Spice Fumigator Carmen Estrada MD - Family Care Team Information Spice Fumigator [phone] Medicine Wan Burgos MD - Urology Care Team Information Spice Fumigator [phone] Problems Active Problems Provider Date Psoriasis with arthropathy Franc Morris M.D.,FACP Onset: 2010 Note: lpe: note rheum factor positive > 100 and ccp > 250 so may be overlap.. Medications Fdc (Current) Use Encounter Adalid Diaz M.D. Onset: [...] Patient has never smoked Smoking Status Reviewed: 04/19/19 Patient has never smoked Exercise Type/Frequency Exercises regularly Allergies, Adverse Reactions, Alerts Description No Known Drug Allergies Medications Active Medications SIG Qnty Indications Ordering Date Provider Roller Walker use for ambulation 1units M25.562 Leilani Mena, 04/19/2019 Misc at all times dx - M.D. s/p tka Shingrix 2 doses 6 month 2units Z23 Shaina Lester, 08/28/2017 50mcg apart LONG LINES OPERATOR Suspension Rec Folic Acid Take 1 Tablet By 90tabs Z79.899 Shaina Lester, 07/10/2010 1mg Mouth Every Day LONG LINES OPERATOR Tablets Multi Complete daily Unknown Capsules Pomegranate Unknown Vitamin C Unknown Vitamin D Unknown Medications Administered in Office Medication SIG Qnty Indications Ordering Provider Date PPD Nurse Visit [facility] 11/19/2010 Injection Celestone 3 mg and 3mg Ellie Degroot, 04/27/2010 Injection M.D. Immunizations CPT Code Status Date Vaccine Reaction Lot # [id number] Given 03/02/2018 Pneumonia Vaccine [id number] well. [id number] Given 02/24/2017 Influenza Virus Vaccine, Pt. tolerated well. No [id number] Quadrivalent, Split, reaction noted. Preservative Free 37857 Given 01/02/2016 Pneumococcal Conjugate [id number] Vaccine 13 Valent For Intramuscular Use 35615 Given 03/15/2015 Influenza Virus Vaccine, [id number] Quadrivalent, Split, Preservative Free 02663 Given 03/03/2014 Flu Vaccine Split Virus [id number] Preservative Free For Indiv 3Yr Older 45516 Given 03/03/2014 Flu Vaccine Split Virus Preservative Free For Indiv 3Yr Older Vital Signs Date Vital Result Comment 04/19/2019 9:50am Height 71.75 inches 5'11.75" Weight 180.00 lb Heart Rate 59 /min BP Systolic 138 mmHg BP Diastolic 88 mmHg Body Temperature 97.9 F Pain Level 4 BMI (Body Mass Index) 24.6 kg/m2 03/10/2019 11:48am Height 71.75 inches 5'11.75" Weight 177.00 lb Heart Rate 50 /min BP Systolic 104 mmHg BP Diastolic 74 mmHg Respiratory Rate 18 /min Body Temperature 97.7 F Pain Level 4 BMI (Body Mass Index) 24.2 kg/m2 Results Test Acquired Date Facility Test Result H/L Range Note Inr/Protime 04/19/2019 [facility] Inr 1.02 Normal 0.82-1.[address] [place] [address] [phone] Laboratory test 04/19/2019 [facility] Partial 34.0 Normal 26.0 -38.[address] [place] [address] PTT [phone] CBC Auto Diff 04/19/2019 [facility] White Blood 5.8 10^3/uL Normal 3.5-10.[address] [place] [address] [phone] Red Blood Count 4.43 10^6/uL Normal 4.18-5.48 Hemoglobin 13.4 g/dL Low 14.0-18.0 Hematocrit 39 % Low 42-52 Mean Corpuscular Volume 88 fL Normal 80-94 Mean Corpuscular Hemoglobin 30 pg Normal 27-31 Mean Corpuscular HGB Conc 35 g/dL Normal 31-36 Red Cell Distribution Width 13 % Normal 10-15 Platelet Count 188 10^3/uL Normal 150-450 Mean Platelet Volume 9.0 fL Normal 7.4-10.4 Abs Neutrophils 3.7 10^3/uL Normal 1.5-7.7 Abs Lymphocytes 1.5 10^3/uL Normal 1.0-4.8 Abs Monocytes 0.4 10^3/uL Normal 0-0.8 Abs Eosinophils 0.1 10^3/uL Normal 0-0.6 Abs Basophils 0.0 10^3/uL Normal 0-0.2 Abs Nucleated RBC 0.0 10^3/uL Granulocyte % 64.2 % Lymphocyte % 26.3 % Monocyte % 7.5 % Eosinophil % 1.5 % Basophil % 0.5 % Nucleated Red Blood Cells % 0.1 Urinalysis Profile 04/19/2019 [facility] Urine Color Straw [address] [place] [address] [phone] Urine Appearance Clear Urine Specific [place] 1.005 Low 1.010-1.030 Urine pH 6.0 Normal 5-9 Urine Urobilinogen Negative Negative Urine Ketones Negative Negative Urine Protein Negative Negative Urine Leukocytes Negative Negative Urine Blood Negative Negative Urine Nitrite Negative Negative Urine Bilirubin Negative Negative Urine Glucose Negative Negative CBC Auto 02/22/2019 [facility] White Blood 6.2 10^3/uL Normal 3.5-10.[address] [place] [address] [phone] Red Blood Count 4.33 10^6/uL Normal 4.18-5.48 [...] Blood Cells % 0.1 Comp Metabolic 02/22/2019 [facility] Sodium 139 mmol/L Normal 135-[address] [place] [address] [phone] Potassium 4.1 mmol/L Normal 3.5-5.0 Chloride 108 [...] Egfr Non- 95.3 >60 Egfr 115.4 >60 2 Laboratory test 02/22/2019 [facility] PSA Screening 0.212 Normal 0-4.000 [address] ng/[place] [address] [phone] CBC Auto Diff 12/24/2018 [facility] White Blood 7.1 Normal 3.5 -10.[address] Count 10^3/[place] [address] [phone] Red Blood Count 4.48 10^6/uL Normal 4.18-5.48 [...] Blood Cells % 0.0 Comp Metabolic 12/24/2018 [facility] Sodium 140 mmol/L Normal 135-[address] [place] [address] [phone] Potassium 4.2 mmol/L Normal 3.5-5.0 Chloride 109 [...] Egfr Non- 96.7 >60 Egfr 117.0 >60 4 Laboratory test 12/24/2018 [facility] PSA Diagnostic 0.281 Normal 0-4.000 [address] ng/[place] [address] [phone] 1 Standard intensity warfarin therapeutic range: 2.0-3.0 High intensity warfarin therapeutic range: 2.5-3.5 2 Because ethnic data is not always [...] 5 Kidney failure <15 (or dialysis) 3 Serum levels of PSA measured using the [employer] DXI Hybritech immunoassay should not be interpreted [...] methods or kits cannot be used interchangeably. 4 Because ethnic data is not always readily [...] 15-29 5 Kidney failure <15 (or dialysis) 5 Serum levels of PSA measured using the [employer] DXI Hybritech immunoassay should not be interpreted [...] interchangeably. Procedures Date Code Description Status 07/18/2011 [id number] Bone Mineral Density Test Completed 05/12/2002 [id number] Colonoscopy Completed Medical Devices Description No Information Available Encounters Type Date Location Provider Dx Diagnosis Office Visit 03/10/2019 [facility] Leilani Mena M05.69 Rheu arthritis 11:15a at [facility] site w involv of organs and systems M25.562 Pain in left knee M25.462 Effusion, left knee M17.32 Unilateral post-traumatic osteoarthritis, left knee Assessments Date Code Description Provider 04/19/2019 M25.562 Pain in left knee Leilani Mena M.D. 04/19/2019 M25.462 Effusion, left knee Leilani Mena M.D. 04/19/2019 M17.32 Unilateral post-traumatic osteoarthritis, left Leilani Mena M.D. knee 03/10/2019 M05.69 Rheumatoid arthritis of multiple sites with Leilani Mena M.D. involvement of o 03/10/2019 M25.562 Pain in left knee Leilani Mena M.D. 03/10/2019 M25.462 Effusion, left knee Leilani Mena M.D. 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 knee Plan of Treatment Future Appointment(s):04/26/2019 12:30 pm - Babar Gomes PA-C at [facility] at [id number]/26/2019 12:30 pm - Leilani Mena M.D. at [facility] at [id number]/19/2019 - Leilani Mena M.D.M25.562 Pain in left kneeNew Medication:Roller Walker - use for ambulation at all times dx - s/p tkaFollow up:Follow up: 2 weeks after twthubaM04.462 Effusion, left kneeM17.32 Unilateral post-traumatic osteoarthritis, left knee Functional Status Description No Information Available Mental Status Description No Information Available Referrals Description No Information Available
[2019-04-26] MEDS ORDERED: Gabapentin CAP(*) 300 MG PO ONE (06:00)
[2019-04-26] MEDS ORDERED: Acetaminophen TAB* 325 MG PO ONE (06:00)
[2019-04-26] MEDS ORDERED: Lactated Ringers 1000 ML Bag* 1,000 ML IV SCH (06:00)
[2019-04-26] MEDS ORDERED: Famotidine IV* 10 MG/ML 2 ML (20 mg) IV ONE (06:00)
[2019-04-26] MEDS ORDERED: celeCOXIB CAP* 200 MG PO ONE (06:00)
[2019-04-26] MEDS ORDERED: Lidocaine 2% PF * 5 ML VIAL ONE ×2 (06:54→08:08)
[2019-04-26] MEDS ORDERED: Propofol* 10 MG/ML 20 ML BTL ONE (06:54)
[2019-04-26] MEDS ORDERED: ROPIVACAINE 5 MG/ML 30 ML BTL (0.5%) ONE ×2 (06:54→07:24)
[2019-04-26] MEDS ORDERED: Dexamethasone IV* 4 MG/ML 1 ML (4 MG) ONE (06:54)
[2019-04-26] MEDS ORDERED: fentaNYL* 50 MCG/ML 2 ML VIAL (100 MCG VIAL) ONE (06:54)
[2019-04-26] MEDS ORDERED: Ondansetron INJ* 2 MG/ML VIAL ONE (06:54)
[2019-04-26] MEDS ORDERED: Midazolam* 1 MG/ML 10 ML VIAL (10 MG) ONE (06:55)
[2019-04-26] MEDS ORDERED: KETAMINE HCL* 50 MG/ML 10 ML VIAL ONE (06:55)
[2019-04-26] MEDS ORDERED: Gabapentin CAP(*) 300 MG ONE (07:04)
[2019-04-26] MEDS ORDERED: celeCOXIB CAP* 200 MG ONE (07:05)
[2019-04-26] MEDS ORDERED: ceFAZolin 2 GM in NS PREMIX(*) 2 GM/100 ML BAG IVPB ONE (07:05)
[2019-04-26] MEDS ORDERED: Famotidine IV* 10 MG/ML 2 ML (20 mg) ONE (07:05)
[2019-04-26] MEDS ORDERED: Acetaminophen TAB* 325 MG ONE (07:05)
[2019-04-26] MEDS ORDERED: Bupivacaine 0.5% SDV PF* 30ML VIAL ONE (07:46)
[2019-04-26] MEDS ORDERED: Propofol* 500 MG/50 ML BTL ONE (08:08)
[2019-04-26] MEDS ORDERED: Ondansetron INJ* 2 MG/ML VIAL IV PRN ×2 (09:35→10:55)
[2019-04-26] MEDS ORDERED: oxyCODONE TAB* 5 MG TAB PO PRN (09:35)
[2019-04-26] MEDS ORDERED: fentaNYL* 50 MCG/ML 2 ML VIAL (100 MCG VIAL) IV PRN (09:35)
[2019-04-26] MEDS ORDERED: Naloxone* 0.4 MG/ML 1 ML VIAL IV PRN (09:35)
[2019-04-26] MEDS ORDERED: diPHENhydraMINE PO* 25 MG PO PRN (10:55)
[2019-04-26] MEDS ORDERED: diPHENhydraMINE IV* 50 MG/ML 1 ml VIAL (BENADRYL) IV PRN (10:55)
[2019-04-26] MEDS ORDERED: Morphine INJ* 2 MG/ML 1 ML SYRINGE (TWO MG - NEW SYRINGE VERSION) IV PRN (10:55)
[2019-04-26] MEDS ORDERED: Magnesium Hydroxide LIQ* 30 ML UDC PO PRN (10:55)
[2019-04-26] MEDS ORDERED: oxyCODONE/Acetamin 5/325 MG* TAB PO PRN (10:55)
[2019-04-26] MEDS ORDERED: Ondansetron ODT TAB* 4 MG PO PRN (10:55)
[2019-04-26] MEDS ORDERED: Acetaminophen TAB* 325 MG PO PRN (10:55)
[2019-04-26] MEDS: Lactated Ringers 1000 ML Bag* 1,000 ML IV SCH (13:18)
[2019-04-26] MEDS: ceFAZolin 1 GM ADVAN(*) 1 GM in NS 0.9% 50 ML* 50 ML IVPB SCH ×2 (15:16→23:04)
--- NOTE | 2019-04-26 16:00 | OP ---
Operative Report - Blank - Operative Report Date of Operation: 04/26/19 Note: LIONEL ADLER 1950 Date of Surgery: 04/26/19 Leilani Mena MD Peg Driver: Arabella AHUMADA did help throughout the procedure with preparation of the knee, wound retraction, manipulation of the knee, and wound closure. Anesthesiologist: Vivienne Kang Md Anesthesia Type: Spinal Preoperative Diagnosis: Left severe degenerative osteoarthritis of the knee Postoperative Diagnosis: As above Procedure Performed: Left Total Knee Arthroplasty with removal of hardware - tibial screw Tourniquet time: 58 minutes Complications: None Specimen: Bone and cartilage from the left knee joint sent to pathology. Hardware Used: Cemented [employer] total knee hardware was used - For the femur a size 6 left oxinium legion posterior stabilized femoral component, for the tibia a size 5 left tomy II tibial baseplate, for the insert a size 13mm 5-6 posterior stabilized articular polyethylene insert, and for the patella a size 35 3-peg all poly patella. Brief History/Indication: LIONEL ADLER was known in clinic and had a history of severe left knee pain and swelling. He had a prior tibial realignment surgery more than 30 years ago. He failed conservative treatment with anti- inflammatories, pain pills, intra-articular injections and physical therapy. He elected to undergo left total knee arthroplasty due to continued pain and decreased quality of life. Radiographs showed severe end stage osteoarthritis of the knee with bone on bone contact. Informed consent was obtained from the patient. He understood the risks of surgery included but were not limited to: bleeding, infection, damage to nearby structures, intraoperative fracture, nerve palsy, failure of the hardware, early loosening, knee stiffness or loss of motion, anesthesia complications, stroke, heart attack, blood clot and . He wished to proceed. He understood that a tibial screw was intended to be removed, this would have risk of failure, breakage, or intraoperative fracture. Intra-Operative Findings: Intraoperatively the patient was noted to have severe loss of cartilage in all 3 compartments of the knee. He had abnormal extensor mechanism alignment from prior surgery. He had a tibial screw that was removed without complication and sent to pathology. Description of the Procedure: LIONEL ADLER was identified in the preanesthesia unit. His left knee was marked as the correct operative side. Informed consent was signed and placed in the chart. The patient was taken to the operating room and placed under anesthesia without complication. A rosario catheter was placed. A tourniquet was placed on the left thigh. The left lower extremity was prepped and draped in the usual sterile fashion. Preoperative time-out was made to correctly identify the patient, side and site. Appropriate intraoperative antibiotics were given within one hour of incision. Tourniquet was inflated. An incision was made distally over the tibia following the patient's prior incision. C-arm views were used to identify the tibial screw. A small aissatou was used to clear bone from around the head of the screw. The proper screwdriver was identified and the screw was removed without complication. Next the midline incision was made and carried superiorly and sharply down to the extensor mechanism. A new 10 blade was used to make a standard medial parapatellar arthrotomy. The patella was subluxed laterally. Electrocautery was used to dissect soft tissue off the superomedial tibia to the midsagittal plane. The knee was flexed up. The anterior horn of the lateral meniscus and the ACL were sharply incised. A drill was used to enter the distal femur. The intramedullary distal femoral cutting guide was pinned on the distal femur. The oscillating saw was used to make the distal femoral cut. The external rotation guide was pinned on the distal femur and the distal femur was sized to a size 6. The size 6 multi-cutting jig was pinned on the distal femur. The oscillating saw was used to make the appropriate 4 chamfer cuts. Next the PCL was completely released. The extramedullary tibial cutting guide was pinned on the proximal tibia and the oscillating saw was used to make the proximal tibial cut perpendicular to the mechanical axis of the tibia. The bone was carefully removed. The knee was brought out into full extension. The spacer block was placed and had excellent fit with the knee in full extension. The medial and lateral ligaments were well balanced. The flexion and extension gaps were well balanced. The knee was flexed up. Lamina secretary of [employer] was placed both medially and laterally. Any remaining meniscus was removed with electrocautery. Curved osteotome was used to remove any posterior osteophytes. The tibial tray and drop jordyn were placed and confirmed a satisfactory tibial cut. The size 6 left femoral trial was impacted onto the distal femur. This trial had excellent fit and stability. The box for the posterior stabilized implant was prepared using a box cut osteotome and a reamer. Next a tibial tray trial and 13 mm insert trial was placed. The knee was taken through a range of motion and had full extension to 130 degrees of flexion. Patellofemoral tracking was satisfactory. The patella was inverted and sized to a size 35. Three peg holes were drilled through the size 35 drill guide. The trial patella was placed and the knee was taken through a range of motion. There was satisfactory patellofemoral tracking. All trials were removed. The tibia was subluxed anteriorly and sized to a size 5. The proximal tibial was prepared with a size 5 keel punch. All bony cut surfaces were irrigated with sterile saline and dried. Final implants were cemented into place starting with the tibia, followed by the femur, and last the patella. A 9 mm insert trial was placed and the knee was brought into full extension. C arm views were obtained and no obvious tibial fracture was noted around the screw removal site. Tourniquet was turned down and the knee was copiously irrigated with sterile saline. Electrocautery was used to obtain meticulous hemostasis. Once the cement had fully cured, the insert trial was removed. Any excess cement was removed from around the hardware and capsule. Final insert chosen was a 13 mm posterior stabilized Tomy II articular insert size 5-6. Stability of the insert was checked and noted to be stable. The extensor mechanism was closed using number 1 vicryls. The rest of the incision was closed in a layered fashion using 0 and 2-0 vicryls. The skin was closed using 3-0 nylon suture. Sterile xeroform, 4x4s and webril were used to cover the incision. Calixto wrap and cold pack were used to cover the dressings. The patients anesthesia was reversed without difficulty. He was taken to the PACU in stable condition. Intended weight-bearing will be as tolerated.
[2019-04-26] MEDS: oxyCODONE TAB* 5 MG TAB PO PRN ×2 (18:10→22:05)
[2019-04-26] MEDS: oxyCODONE/Acetamin 5/325 MG* TAB PO PRN (19:57)
[2019-04-26] MEDS: Docusate CAP* 100 MG PO SCH (19:57)
[2019-04-26] MEDS: Magnesium Hydroxide LIQ* 30 ML UDC PO SCH (19:58)
[2019-04-26] MEDS: Cyclobenzaprine TAB* 10 MG PO PRN (23:08)
[2019-04-27] MEDS: Lactated Ringers 1000 ML Bag* 1,000 ML IV SCH (02:48)
[2019-04-27] MEDS: oxyCODONE/Acetamin 5/325 MG* TAB PO PRN ×3 (02:49→13:51)
[2019-04-27] MEDS: oxyCODONE TAB* 5 MG TAB PO PRN ×2 (05:04→10:09)
[2019-04-27] MEDS: Cyclobenzaprine TAB* 10 MG PO PRN ×2 (05:06→11:12)
[2019-04-27 05:56] LABS: Hematocrit 29 % (42-52); Hemoglobin 10.4 g/dL (14.0-18.0); Mean Platelet Volume 9.2 fL (7.4-10.4); Platelet Count 142 10^3/uL (150-450)
[2019-04-27] MEDS: ceFAZolin 1 GM ADVAN(*) 1 GM in NS 0.9% 50 ML* 50 ML IVPB SCH (06:35)
[2019-04-27 07:15] LABS: BUN/Creatinine Ratio 26.8 (8-20); Calcium 8.7 mg/dL (8.6-10.3); EGFR African American 134.3 (>60); Potassium 4.3 mmol/L (3.5-5.0)
[2019-04-27] MEDS: Docusate CAP* 100 MG PO SCH (07:57)
[2019-04-27] MEDS: Magnesium Hydroxide LIQ* 30 ML UDC PO SCH (07:57)
--- NOTE | 2019-04-27 08:15 | PN ---
Progress Note - Progress Note Date of Service: 04/27/19 SOAP: Subjective: resting comfortably, pain well controlled, no complaints Objective: Vital Signs Temp Pulse Resp BP Pulse Ox 99 F 64 18 112/56 97 04/27/19 03:35 04/27/19 03:35 04/27/19 07:58 04/27/19 03:35 04/27/19 03:35 Laboratory Last Values Hgb 10.4 g/dL (14.0-18.0) L 04/27/19 05:26 Hct 29 % (42-52) L 04/27/19 05:26 Plt Count 142 10^3/uL (150-450) L 04/27/19 05:26 MPV 9.2 fL (7.4-10.4) 04/27/19 05:26 Sodium 136 mmol/L (135-145) 04/27/19 05:26 Potassium 4.3 mmol/L (3.5-5.0) 04/27/19 05:26 Chloride 105 mmol/L (101-111) 04/27/19 05:26 Carbon Dioxide 26 mmol/L (22-32) 04/27/19 05:26 Anion Gap 5 mmol/L (2-11) 04/27/19 05:26 BUN 19 mg/dL (6-24) 04/27/19 05:26 Creatinine 0.71 mg/dL (0.67-1.17) 04/27/19 05:26 Est GFR ( Amer) 134.3 (>60) 04/27/19 05:26 Est GFR (Non-Af Amer) 111.0 (>60) 04/27/19 05:26 BUN/Creatinine Ratio 26.8 (8-20) H 04/27/19 05:26 Glucose 128 mg/dL (70-100) H 04/27/19 05:26 Calcium 8.7 mg/dL (8.6-10.3) 04/27/19 05:26 incision: c/d; dressing changed PE: NVI Assessment: s/p left TKA; POD#1 Plan: 1) PT/OT 2) Ancef x 24 hours 3) Home today; F.U with Rajesh in 2 weeks
[2019-04-27] MEDS ORDERED: Vitamin THERAPEUTIC TAB PO SCH (09:00)
[2019-04-27] MEDS ORDERED: Apixaban* 2.5 MG TAB PO SCH (09:00)
[2019-04-27 11:45] VITALS: BP 112/68
--- NOTE | 2019-04-27 12:38 | DS ---
DISCHARGE SUMMARY: DATE OF ADMISSION: 04/26/19 DATE OF DISCHARGE: 04/27/19 SURGEON: Leilani Mena MD * (DICTATED BY BRANDYN COX) PRINCIPAL DIAGNOSIS: End-stage osteoarthritis of the left knee. DISCHARGE DIAGNOSIS: End-stage osteoarthritis of the left knee. DISCHARGE DISPOSITION: Discharge home in stable condition. HISTORY OF PRESENT ILLNESS: Mr. Matt is a 68-year-old gentleman with end- stage osteoarthritis of the left knee. He has failed conservative treatment and elected to proceed with a left total knee arthroplasty. HOSPITAL COURSE: Mr. Matt was admitted electively to the hospital on . He underwent a left total knee arthroplasty. He tolerated the surgery well. Postoperatively, he was placed on Eliquis twice a day for DVT prophylaxis. On postoperative day 1, his H and H was 10 and 29. He was ambulating well with physical therapy and his pain was well controlled with p.o. pain medications. DISCHARGE MEDICATIONS: 1. Percocet 5/325 one to two tabs every 4 to 6 hours as needed for pain. 2. Flexeril 10 mg 1 tablet for 8 hours as needed for muscle spasms. 3. Colace 100 mg 2 to 3 tabs daily as needed for constipation. 4. Eliquis 2.5 mg every 12 hours for 30 days. PHYSICAL EXAMINATION UPON DISCHARGE: He was afebrile. His vital signs were stable. He was ambulating well with a walker. He was able to dorsiflex and plantar flex. He had intact sensation and 2+ dorsalis pedis pulse. DISCHARGE INSTRUCTIONS: He was discharged home. He was given Percocet for pain as well as Flexeril for muscle spasms, Colace for constipation and Eliquis 2.5 mg to take every 12 hours for 30 days. He has outpatient physical therapy set up for Friday. I did provide him with physical therapy prescription which is at our office. I changed his dressing prior to discharge. He will leave this dressing on until Friday. Friday, he can remove the dressing and take a shower, no bath. He can let soap and water run over the incision, pat it dry and either leave it open to air or redress with a clean, dry Calixto wrap. He will follow up with Dr. Mena in 2 weeks. We have asked him to call to our office with any questions or concerns. BRANDYN COX [id number]/[facility] #: [id number]
[2019-04-28] MEDS ORDERED: Bisacodyl SUPP* 10 MG SUPP PR PRN (10:56)
== END 2019-04-27 14:35 | disposition home or self-care (01) ==
LOC: INTOOBSV 05:30 → AA 05:30 → SSU 10:56 → EDSTATUS 11:00
PROVIDERS: ADMIT Orthopaedic Surgery Adult Reconstructive Orthopaedic Surgery; ATTEND Orthopaedic Surgery Adult Reconstructive Orthopaedic Surgery
DX: M17.12 Unilateral primary osteoarthritis, left knee (principal); M05.79 Rheumatoid arthritis with rheumatoid factor of multiple sites without organ or systems involvement; M25.562 Pain in left knee; Z85.46 Personal history of malignant neoplasm of prostate; G47.30 Sleep apnea, unspecified; Z79.01 Long term (current) use of anticoagulants; Z79.899 Other long term (current) drug therapy
CPT/HCPCS: 36415; 76000; 80048; 85014; 85018; 85049; 96374; A9270-GY; C1776; G0378; G8978-GP-CK; G8979-GP-CI; J0690; J1100; J2250; J2270; J2405; J2704; J2795; J3010; J3490